=== PATIENT | female | born 1965 | race African-American/Black ===

== ENCOUNTER 2016-12-22 07:53 | Emergency (ER) | payer BC ==
[~2016-12-22] VITALS: Ht 162.6 cm; Wt 89.9 kg
[2016-12-22 07:55] VITALS: BP 132/84
--- NOTE | 2016-12-22 08:20 | PHYS DOC ---
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 Past Surgical History: Cholecystectomy, Hysterectomy Alcohol Use: None Drug Use: None Adult General Chief Complaint Chief Complaint: UPPER EXTREMITY PAIN [facility] HPI This patient is a pleasant 51-year-old female with history of hypertension and possible Aljkh-Pkhvlftbs-Gyxdf presents with left shoulder pain. She noted the pain several days ago described as ache in her left shoulder with radiation over the lateral aspect of her shoulder down her arm. There is no weakness associated with the arm there is no shortness of breath or chest pain no nausea no vomiting no focal neurologic deficits associated with this pain. Pain is exacerbated with external rotation of the arm abduction as well as flexion at the shoulder. Pain is better when held in position of comfort. Patient denies any direct trauma denies any falls or any other skin complaints. Patient's pain describes as throbbing 7-10 days increased to 10 on a 10 with certain movements. She denies any prior history of the same. She was worried about her heart given her prior cardiac issues. She does see a medical appointment clerk but is not on any medications for her cardiac issues. Review of Systems Review of Systems Constitutional: Denies fever or chills [] Eyes: Denies change in visual acuity, redness, or eye pain [] HENT: Denies nasal congestion or sore throat [] Respiratory: Denies cough or shortness of breath [] Cardiovascular: No additional information not addressed in HPI [] GI: Denies abdominal pain, nausea, vomiting, bloody stools or diarrhea [] : Denies dysuria or hematuria [] Musculoskeletal: Denies back pain or joint pain [] Integument: Denies rash or skin lesions [] Neurologic: Denies headache, focal weakness or sensory changes [] Endocrine: Denies polyuria or polydipsia [] Current Medications Current Medications Current Medications Medications (Trade) Dose Ordered Sig/Nae Start Time Stop Time Status Last Admin Dose Admin Ketorolac Tromethamine (Toradol Im) 60 mg 1X ONCE 12/22/16 08:30 12/22/16 08:31 DC 12/22/16 08:16 60 MG Allergies Allergies Allergies Coded Allergies Type Severity Reaction Last Updated Verified Penicillins Allergy Mild 05/05/15 Yes Physical Exam Physical Exam Constitutional: Well developed, well nourished, no acute distress, non-toxic appearance. [] HENT: Normocephalic, atraumatic, bilateral external ears normal, oropharynx moist, Eyes: PERRLA, EOMI, conjunctiva normal, no discharge. [] Neck: Normal range of motion, no tenderness, supple, no stridor. [] Cardiovascular:Heart rate regular rhythm, no murmur [] Lungs & Thorax: Bilateral breath sounds clear to auscultation [] Skin: Warm, dry, no erythema, no rash. [] Extremities: Patient has tenderness over the lateral aspect of the shoulder over the sits muscles with obvious tenderness to palpation with external rotation and abduction at the shoulder. Patient has a positive Hawking's impingement test Neurologic: Alert and oriented X 3, normal motor function, normal sensory function, no focal deficits noted. [] Patient has brisk cap refill +2 patient has good peripheral pulses at the radial ulnar arteries. Patient has normal sensation to light touch proprioception from C5-T1. Psychologic: Affect normal, judgement normal, mood normal. [] Current Patient Data Vital Signs Vital Signs Date Time Temp Pulse Resp B/P (MAP) Pulse Ox O2 Delivery O2 Flow Rate FiO2 12/22/16 07:55 98.6 98 16 132/84 (100) 99 Room Air 98.6 EKG EKG EKG timed 080 6 in the morning 12/22/2016 demonstrates heart rate of 86 normal sinus rhythm widened QRS complex with questionable intraventricular delay no clear delta wave or elevations concerning for [place]. [] Radiology/Procedures Radiology/Procedures [] PATIENT: CALVIN MCMAHON ACCOUNT: [id number] : 1965 LOCATION: ER AGE: 51 SEX: F EXAM STATUS: PRE ER ORD. PHYSICIAN: NAIMA GRAYSON MD REASON: shoulder pain PROCEDURE: CHEST PA & LATERAL Indication: Left shoulder pain. Time of exam 0820 hours. FINDINGS: The heart size is normal. The lungs are clear. No pleural effusion or pneumothorax is identified. The pulmonary vascularity is normal. IMPRESSION: No acute abnormality detected. DICTATED and SIGNED BY: ROMY VELAZQUEZ MD DATE: 12/22/16 0827 CC: NAIMA GRAYSON MD; PITER GARLAND MD ~ IMAGING REPORT Signed PATIENT: CALVIN MCMAHON ACCOUNT: [id number] : 1965 LOCATION: ER AGE: 51 SEX: F EXAM STATUS: PRE ER ORD. PHYSICIAN: NAIMA GRAYSON MD REASON: shoulder pain PROCEDURE: SHOULDER 2+V LEFT Exam performed:3 views left shoulder Indication:Left shoulder pain for 2 days, no known injury Date of service:12/22/16. Comparison:None available Findings : AP radiographs of the shoulder in internal and external rotation as well as a Y-view are obtained. There are degenerative changes about the acromial clavicular joint. The glenohumeral joint space is well-preserved. The articular margins are smooth. 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 No acute abnormality seen DICTATED and SIGNED BY: KARAN SYKES MD DATE: 12/22/16 0828 CC: NAIMA GRAYSON MD; PITER GARLAND MD ~ Course & Med Decision Making Course & Med Decision Making Pertinent Labs and Imaging studies reviewed. (See chart for details) [Patient presents with a history of shoulder pain nontraumatic in nature which I believed to be associate with rotator cuff injury or irritation. Patient does have some risk factors for cardiac disease given her hypertension and her questionable tachydysrhythmias in the past with multiple Parkinson White she is on no medication for her Kupyh-Caymueujf-Ixbhi and her heart score is 1 she is low risk EKG is not showing any signs of ischemia. Chest x-ray and shoulder films were completed we will likely treat this patient with anti-inflammatory muscle relaxant and referral to orthopedist surgery for an evaluation of her potential rotator cuff injury.] Patient's shoulder and chest x-ray reviewed by Dr. Grayson. There are no acute findings that are concerning to patient's symptoms. Impression: Left shoulder pain, possible rotator cuff injury. Disposition: PCP referral for orthopedics follow-up placed on anti-inflammatories and muscle relaxants precautions given. Doubt cardiac source of her pain. Abnormal EKG referred back to cardiology. Heart score 1 her CAD risk is low risk.. Dragon Disclaimer Dragon Disclaimer This electronic medical record was generated, in whole or in part, using a voice recognition dictation system. Departure Departure Impression: Primary Impression: Injury of left rotator cuff Disposition: 01 HOME, SELF-CARE Condition: IMPROVED Referrals: PITER GARLAND MD (PCP) Patient Instructions: Rotator Cuff Injury, Rotator Cuff Tendinitis Additional Instructions: This follow-up primary care doctor for referral to physical therapy and orthopedic surgery. This return for any new or increasing symptoms like chest pain or shortness of breath. Please follow-up if you any questions or concerns. I would advise that you use warm compresses range of motion exercises as well as medications given to help treat symptoms. Scripts Hydrocodone Bit/Acetaminophen (VICODIN 5-300 MG TABLET) 1 Each Tablet 1 EACH PO Q4H Y for PAIN, #14 TAB 0 Refills Prov: NAIMA GRAYSON MD 12/22/16 Tizanidine Hcl (ZANAFLEX) 4 Mg Tablet 1 TAB PO QHS for MUSCLE SPASMS, #30 TAB Prov: NAIMA GRAYSON MD 12/22/16 Naproxen (NAPROSYN) 500 Mg Tablet 1 TAB PO BID, #20 TAB 1 Refill Prov: NAIMA GRAYSON MD 12/22/16 NAIMA GRAYSON MD December 22, 2016 08:20
[2016-12-22] MEDS ORDERED: KETOROLAC TROMETHAMINE 60 MG/2 ML INJ. IM ONE (08:30)
--- NOTE | 2016-12-22 08:30 | RAD ---
Indication: Left shoulder pain. Time of exam 0820 hours. FINDINGS: The heart size is normal. The lungs are clear. No pleural effusion or pneumothorax is identified. The pulmonary vascularity is normal. IMPRESSION: No acute abnormality detected.
--- NOTE | 2016-12-22 08:32 | RAD ---
Exam performed:3 views left shoulder Indication:Left shoulder pain for 2 days, no known injury Date of service:12/22/16. Comparison:None available Findings : AP radiographs of the shoulder in internal and external rotation as well as a Y-view are obtained. There are degenerative changes about the acromial clavicular joint. The glenohumeral joint space is well-preserved. The articular margins are smooth. 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 No acute abnormality seen
--- NOTE | 2016-12-22 08:52 | EKG ---
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
[2016-12-22] MEDS ORDERED: NAPR500T PO (09:01)
[2016-12-22] MEDS ORDERED: HYDR1TAB12 PO (09:01)
[2016-12-22] MEDS ORDERED: TIZA4TAB8 PO (09:01)
== END 2016-12-22 09:20 | disposition home or self-care (01) ==
LOC: ER 07:53
DX: S46.002A Unspecified injury of muscle(s) and tendon(s) of the rotator cuff of left shoulder, initial encounter (principal); I10 Essential (primary) hypertension; Z88.0 Allergy status to penicillin; X58.XXXA Exposure to other specified factors, initial encounter; Y93.89 Activity, other specified; Y99.8 Other external cause status; Y92.89 Other specified places as the place of occurrence of the external cause
CPT/HCPCS: 71020; 73030; 93005; 96372; 99284; J1885

== ENCOUNTER 2020-04-26 18:03 | Emergency (ER) | payer BC ==
[~2020-04-26] VITALS: Ht 160 cm; Wt 90.9 kg
[~2020-04-26 18:03] MED LIST: HYDR1TAB13 PO; NAPR-683 PO; TIZA4TAB8 PO
[2020-04-26 19:25] VITALS: BP 124/59
--- NOTE | 2020-04-26 19:54 | PHYS DOC ---
Past Medical History Past Medical History: Hypertension Additional Past Medical Histor: questional tachydysrhythmia possible Eqnju-Auwxijvkh-Wybng. Past Surgical History: Cholecystectomy, Hysterectomy Smoking Status: Never Smoker Alcohol Use: None Drug Use: None General Adult EDM: Chief Complaint: GROIN PAIN HPI: HPI: Patient is a 54 year old female who states she was walking in [facility] and felt her right leg give out. Patient complains of right anterior medial thigh pain that radiates down the thigh little bit. Patient denies any distal weakness or numbness. Patient denies any back pain. Patient denies any fevers chills cough or shortness of breath. Patient saw physical therapy earlier this year for sciatica on the right side. Patient denies any trauma. Pain is mild in intensity at rest and moderate with walking. Review of Systems: Review of Systems: Constitutional: Denies fever or chills. [] Eyes: Denies change in visual acuity. [] HENT: Denies nasal congestion or sore throat. [] Respiratory: Denies cough or shortness of breath. [] Cardiovascular: Denies chest pain or edema. [] GI: Denies abdominal pain, nausea, vomiting, bloody stools or diarrhea. [] : Denies dysuria. [] Musculoskeletal: Denies back pain but complains of right thigh pain Integument: Denies rash. [] Neurologic: Denies headache, focal weakness or sensory changes. [] Endocrine: Denies polyuria or polydipsia. [] Lymphatic: Denies swollen glands. [] Psychiatric: Denies depression or anxiety. [] Heart Score: Risk Factors: Risk Factors: DM, Current or recent (<one month) smoker, HTN, HLP, family history of CAD, obesity. Risk Scores: Score 0 - 3: 2.5% MACE over next 6 weeks - Discharge Home Score 4 - 6: 20.3% MACE over next 6 weeks - Admit for Clinical Observation Score 7 - 10: 72.7% MACE over next 6 weeks - Early Invasive Strategies Allergies: Allergies: Allergies Coded Allergies Type Severity Reaction Last Updated Verified Penicillins Allergy Mild 05/05/15 Yes Physical Exam: PE: Constitutional: Well developed, well nourished, no acute distress, non-toxic appearance. [] HENT: Normocephalic, atraumatic, bilateral external ears normal, no trismus nose normal. [] Eyes: PERRLA, EOMI, conjunctiva normal, no discharge. [] Neck: Normal range of motion, no tenderness, supple, no stridor. [] Cardiovascular:Heart rate regular rhythm, peripheral pulses intact, cap refill brisk Lungs & Thorax: Bilateral breath sounds clear, no respiratory distress Abdomen: Bowel sounds normal, soft, no tenderness, no masses, no pulsatile masses. [] Skin: Warm, dry, no erythema, no rash. [] Back: No tenderness, no CVA tenderness. [] Tender to palpate the right thigh, neurovascular intact distally Extremities: No tenderness, no cyanosis, no clubbing, ROM intact, no edema. [] Neurologic: Alert and oriented X 3, normal motor function, normal sensory function, no focal deficits noted. [] Psychologic: Affect normal, judgement normal, mood normal. [] Current Patient Data: Vital Signs: Vital Signs Date Time Temp Pulse Resp B/P (MAP) Pulse Ox O2 Delivery O2 Flow Rate FiO2 04/26/20 19:25 98.4 91 20 124/59 (80) 99 Room Air 98.4 EKG: EKG: [] Radiology/Procedures: Radiology/Procedures: [][facility] [address] [place], [place] [id number] IMAGING REPORT Signed PATIENT: CALVIN MCMAHON ACCOUNT: [id number] : 1965 LOCATION: ER AGE: 54 SEX: F EXAM STATUS: REG ER ORD. PHYSICIAN: WAQAR ZUNIGA MD REASON: R THIGHT PAIN PROCEDURE: VENOUS LOWER EXTREMITY RIGHT ADDENDUM ADDENDUM #1 Addendum: Incorrect laterality in the original report. The images were obtained of the right lower extremity. Updated report as below: Examination: Unilateral venous Doppler. Technique: Ultrasound evaluation of the right lower extremity was performed from the groin to the upper calf with torrez scale, spectral and color doppler evaluation. Indication: Leg swelling Findings: There is normal venous flow and compressibility of right common femoral vein, femoral vein, popliteal vein, and visualized proximal calf veins. Impression: No evidence for deep vein thrombosis of right lower extremity from the level of the calf veins to the groins. Electronically signed by: Grant Oconnor MD (04/26/2020 9:02 PM) ANDREA DICTATED AND SIGNED BY: GRANT OCONNOR MD DATE: 04/26/202101 CC: WAQAR ZUNIGA MD; JENNIFER LI MD ~ Examination: Unilateral venous Doppler. Technique: Ultrasound evaluation of the left lower extremity was performed from the groin to the upper calf with torrez scale, spectral and color doppler evaluation. Indication: Leg swelling Comparison: None Findings: There is normal venous flow and compressibility of left common femoral vein, femoral vein, popliteal vein, and visualized proximal calf veins. Impression: No evidence for deep vein thrombosis of left lower extremity from the level of the calf veins to the groins. Electronically signed by: Grant Oconnor MD (04/26/2020 8:23 PM) ANDREA DICTATED and SIGNED BY: GRANT OCONNOR MD DATE: 04/26/202022 [facility] [address] [facility] [place], [place] [id number] IMAGING REPORT Signed PATIENT: CALVIN MCMAHON ACCOUNT: [id number] : 1965 LOCATION: ER AGE: 54 SEX: F EXAM STATUS: REG ER ORD. PHYSICIAN: WAQAR ZUNIGA MD REASON: R LEG PAIN PROCEDURE: PELVIS Exam: Pelvis. Right femur 2 views INDICATION: Right leg pain TECHNIQUE: Frontal view of the pelvis. Frontal and lateral views of the right femur Comparisons: None FINDINGS: Pelvis: No acute or healed fractures are identified. Bone mineralization is normal. Joint spaces are well-maintained. Soft tissues are unremarkable. Femur: Bone mineralization is normal. No acute or healed fractures. Soft tissues are unremarkable. Joint spaces are well-maintained. IMPRESSION: 1. No acute osseous abnormality identified at the pelvis. 2. No acute osseous abnormality of the right femur. Electronically signed by: Nghia Christie MD (04/26/2020 9:16 PM) [id number] DICTATED and SIGNED BY: NGHIA CHRISTIE MD DATE: 04/26/202115 Course & Med Decision Making: Course & Med Decision Making Pertinent Labs and Imaging studies reviewed. (See chart for details) [] 54-year-old female arrives with a chief complaint of right thigh pain. Ultrasound was done to rule out DVT x-rays were negative. Most likely patient has a muscle strain. Patient be treated with anti-inflammatories and muscle relaxers. Patient stable for discharge outpatient follow-up. Dragon Disclaimer: Dragon Disclaimer: This electronic medical record was generated, in whole or in part, using a voice recognition dictation system. Departure Departure Impression: Primary Impression: Right thigh pain Disposition: HOME, SELF-CARE Condition: STABLE Referrals: JENNIFER LI MD (PCP) 2-3 DAYS Patient Instructions: Groin Strain Additional Instructions: EMERGENCY DEPARTMENT GENERAL DISCHARGE INSTRUCTIONS THANK YOU for coming to [facility] Emergency Department (ED) today and trusting us with your care. We trust that you had a positive experience in our Emergency Department. If you wish to speak to the department Management you can contact the viscose department worker at . YOUR FOLLOW UP INSTRUCTIONS ARE FOLLOWS: Do you have a private doctor? If you do not have a private doctor, please ask for a resource list of physicians or clinics that may be able to assist you with follow up care. The Emergency Physician has interpreted your x-rays. The X-ray specialist will also review them. If there is a change in the findings you will be notified in 48 hours when at all possible. A lab test or lab culture may have been done, your results will be reviewed and you will be notified if you need a change in treatment. ADDITIONAL INSTRUCTIONS AND INFORMATION Your care today has been supervised by a physician who is specially trained in emergency care. Many problems require more than one evaluation for a complete diagnosis and treatment. We recommend that you schedule your follow up appointment as recommended to ensure complete treatment of your illness or injury. If you are unable to obtain follow up care and continue to have a problem, or if your condition worsens we recommend that you return to the ED. We are not able to safely determine your condition over the phone nor are we able to give sound medical advice over the phone. For these safety reasons, if you call for medical advice we will ask you to come to the ED for further evaluation If you have any questions regarding these discharge instructions please call the ED at . SAFETY INFORMATION In the interest of safety, wellness, and injury prevention; we encourage you to wear your seatbelt, if you smoke; quit smoking, and we encourage your family to use prote ctive helmet for bicycling and other sporting events that present an increased risk for head injury. IF YOUR SYMPTOMS WORSEN OR NEW SYMPTOMS DEVELOP, OR YOU HAVE CONCERNS ABOUT YOUR CONDITION; OR IF YOUR CONDITION WORSENS WHILE YOU ARE WAITING FOR YOUR FOLLOW UP APPOINTMENT; EITHER CONTACT YOUR PRIMARY CARE DOCTOR, THE PHYSICIAN WHOSE NAME AND NUMBER YOU WERE GIVEN, OR RETURN TO THE ED IMMEDIATELY. Scripts Methocarbamol (ROBAXIN-750) 750 Mg Tablet 1 TAB PO TID for PAIN for 5 Days, #15 TAB 0 Refills Prov: WAQAR ZUNIGA MD 04/26/20 Ibuprofen (IBUPROFEN) 600 Mg Tablet 600 MG PO PRN Q6HRS PRN for PAIN, #20 TAB take with food or milk Prov: WAQAR ZUNIGA MD 04/26/20 Justicifation of Admission Dx: Justifications for Admission: Justification of Admission Dx: N/A WAQAR ZUNIGA MD Apr 26, 2020 19:53
--- NOTE | 2020-04-26 20:26 | RAD ---
Examination: Unilateral venous Doppler. Technique: Ultrasound evaluation of the left lower extremity was performed from the groin to the upper calf with torrez scale, spectral and color doppler evaluation. Indication: Leg swelling Comparison: None Findings: There is normal venous flow and compressibility of left common femoral vein, femoral vein, popliteal vein, and visualized proximal calf veins. Impression: No evidence for deep vein thrombosis of left lower extremity from the level of the calf veins to the groins. Electronically signed by: Grant Gray MD (04/26/2020 8:23 PM) ANDREA
--- NOTE | 2020-04-26 21:19 | RAD ---
Exam: Pelvis. Right femur 2 views INDICATION: Right leg pain TECHNIQUE: Frontal view of the pelvis. Frontal and lateral views of the right femur Comparisons: None FINDINGS: Pelvis: No acute or healed fractures are identified. Bone mineralization is normal. Joint spaces are well-maintained. Soft tissues are unremarkable. Femur: Bone mineralization is normal. No acute or healed fractures. Soft tissues are unremarkable. Joint spaces are well-maintained. IMPRESSION: 1. No acute osseous abnormality identified at the pelvis. 2. No acute osseous abnormality of the right femur. Electronically signed by: Nghia Redmond MD (04/26/2020 9:16 PM) [id number]
[2020-04-26] MEDS ORDERED: METH-38 PO (21:38)
[2020-04-26] MEDS ORDERED: IBUP-1007 PO (21:38)
== END 2020-04-26 22:23 | disposition home or self-care (01) ==
LOC: ER 18:03
DX: M79.651 Pain in right thigh (principal); M79.604 Pain in right leg; R10.2 Pelvic and perineal pain; I10 Essential (primary) hypertension; Z90.49 Acquired absence of other specified parts of digestive tract; Z90.710 Acquired absence of both cervix and uterus; Z88.0 Allergy status to penicillin
CPT/HCPCS: 72170; 73552; 93971; 99284